=== PATIENT | female | born 1960 ===

== ENCOUNTER 2025-03-08 10:39 | Outpatient (CLI) | payer OTHER | END 2025-03-08 10:45 | disposition home or self-care (01) | LOC: RAD 10:39 | PROVIDERS: ATTEND Physical Medicine & Rehabilitation | DX: M25.511 Pain in right shoulder (principal); M17.11 Unilateral primary osteoarthritis, right knee; M17.12 Unilateral primary osteoarthritis, left knee; M54.2 Cervicalgia ==